=== PATIENT | male | born 1985 | race African-American/Black ===

== ENCOUNTER 2022-04-18 17:13 | Inpatient (IN) | payer SELFPAY ==
[~2022-04-18] VITALS: Ht 190.5 cm; Wt 97.5 kg
[2022-04-18] MEDS ORDERED: SODIUM CHLORIDE 0.9% 1,000 ML IV ONE (18:00)
[2022-04-18] MEDS ORDERED: LEVETIRACETAM 1000MG PREMIX 100 ML IV ONE (18:00)
[2022-04-18 18:17] LABS: HEMATOCRIT. 36.4 % (42.0-52.0); HEMOGLOBIN. 12.5 g/dL (14.0-18.0); MEAN CORPUSCULAR VOLUME 102.4 fL (80.0-94.0); MEAN PLATELET VOLUME 8.7 fl (7.4-10.4); PLATELET 110 x1000/uL (130-400); RED BLOOD CELL COUNT 3.56 mill/uL (4.7-6.1); RED CELL DISTRIBUTION WIDTH 13.8 % (11.6-14.6)
[2022-04-18 19:00] LABS: CHLORIDE 103 mEq/L (98-107)
[2022-04-18 19:17] LABS: ETHANOL BLOOD < 10 mg/dL; VALPROIC ACID <3.0 ug/mL ug/mL (50-100)
[2022-04-18 19:20] LABS: CARBAMAZEPINE < 0.5 ug/mL (4-12); PHENOBARBITAL < 2.1 ug/mL (15.0-40.0)
[2022-04-18 20:05] LABS: PLATELET ESTIMATE DECREASED
[2022-04-18] MEDS ORDERED: CLONIDINE 0.1MG TABLET PO PRN (21:15)
[2022-04-18] MEDS ORDERED: ACETAMINOPHEN 325MG TABLET PO PRN ×2 (21:15)
[2022-04-18] MEDS ORDERED: MAGNESIUM/ALUMINUM HYDROXIDE/SIMETHICONE 30ML UDC PO PRN (21:15)
[2022-04-18] MEDS ORDERED: ZOLPIDEM TARTRATE 5MG TABLET PO PRN (21:15)
[2022-04-18] MEDS ORDERED: DIPHENHYDRAMINE 50MG/ML VIAL IV PRN (21:15)
[2022-04-18] MEDS ORDERED: MVI, ADULT NO.1 10 ML, FOLIC ACID 1 MG, THIAMINE HCL 100 MG in SODIUM CHLORIDE 0.9% 1,0... IV NR ×4 (22:00)
[2022-04-18 23:15] VITALS: BP 144/80
[2022-04-19] MEDS ORDERED: HALOPERIDOL LACTATE 5MG/ML VIAL IM NR (01:30)
[2022-04-19] MEDS ORDERED: DIPHENHYDRAMINE 50MG/ML VIAL IM NR (01:30)
[2022-04-19] MEDS ORDERED: HALOPERIDOL LACTATE 5MG/ML VIAL IM PRN (01:45)
[2022-04-19] MEDS ORDERED: DIPHENHYDRAMINE 50MG/ML VIAL IV PRN (01:45)
[2022-04-19] MEDS ORDERED: DIAZEPAM 5 MG/ML 2ML CPJ IM NR (01:45)
[2022-04-19] MEDS ORDERED: DIAZEPAM 5 MG/ML 2ML CPJ IM PRN (01:45)
[2022-04-19 04:00] VITALS: BP 130/72
[2022-04-19] MEDS ORDERED: DEXT 5%/0.45% NACL KCL 10MEQ/L 1,000 ML IV SCH (04:00)
[2022-04-19 08:00] VITALS: BP 126/81
[2022-04-19] MEDS ORDERED: LEVETIRACETAM 500MG PREMIX 100 ML IV SCH (09:00)
[2022-04-19 12:00] VITALS: BP 155/85
[2022-04-19 15:56] VITALS: BP 163/96
[2022-04-19] MEDS ORDERED: CHLORDIAZEPOXIDE 25MG CAPSULE PO NR (16:30)
[2022-04-19 20:00] VITALS: BP 146/89
[2022-04-19] MEDS: CHLORDIAZEPOXIDE 25MG CAPSULE PO SCH (21:47)
[2022-04-20] VITALS: BP 115/89
[2022-04-20 04:00] VITALS: BP 114/78
[2022-04-20] MEDS: CHLORDIAZEPOXIDE 25MG CAPSULE PO SCH ×2 (05:28→11:47)
[2022-04-20 06:14] LABS: EOSINOPHILS % 4.3 % (0.0-5.0); HEMATOCRIT. 35.9 % (42.0-52.0); HEMOGLOBIN. 12.4 g/dL (14.0-18.0); LYMPHOCYTES % 23.7 % (20.0-50.0); MEAN CORPUSCULAR HEMOGLOBIN 34.8 pg (28.0-32.0); MEAN CORPUSCULAR VOLUME 101.1 fL (80.0-94.0); MEAN PLATELET VOLUME 9.2 fl (7.4-10.4); MONOCYTES % 11.2 % (2.0-8.0); NEUTROPHILS % 59.8 % (40.0-76.0); PLATELET 89 x1000/uL (130-400); RED BLOOD CELL COUNT 3.55 mill/uL (4.7-6.1); RED CELL DISTRIBUTION WIDTH 13.3 % (11.6-14.6)
[2022-04-20 06:27] LABS: CHLORIDE 103 mEq/L (98-107)
[2022-04-20 06:32] LABS: PHOSPHORUS 4.6 mg/dL (2.5-4.9)
[2022-04-20 08:00] VITALS: BP 134/78
[2022-04-20] MEDS: POTASSIUM CHLORIDE 20MEQ TABLET SR PO SCH ×3 (10:16→14:25)
[2022-04-20 12:00] VITALS: BP 141/71
[2022-04-20] MEDS ORDERED: POTASSIUM CHLORIDE 20MEQ TABLET SR PO NR (14:30)
[2022-04-20 15:50] VITALS: BP 138/52
== END 2022-04-20 19:10 | disposition home or self-care (01) | DRG 52 ==
LOC: ER 17:13 → EDBD 17:13 → ENRESERV 21:18 → EDBD 04-19 04:00 → 6WST 04-19 04:00
PROVIDERS: ADMIT Internal Medicine; ATTEND Internal Medicine
DX: G92.8 Other toxic encephalopathy (principal); F10.131 Alcohol abuse with withdrawal delirium; G40.909 Epilepsy, unspecified, not intractable, without status epilepticus; Y90.9 Presence of alcohol in blood, level not specified
CPT/HCPCS: 36415; 71045; 80048; 80053; 80156; 80165; 80184; 80185; 80320; 83735; 84100; 85025; 93005; 99285; J1200; J1630; J1953; J3411; J3490; J7030; G0480